=== PATIENT | female | born 1935 | race Asian ===

== ENCOUNTER 2016-10-12 06:33 | Day surgery (SDC) | payer OTHER ==
--- NOTE | 2016-10-11 10:37 | PREOPHP ---
DATE OF ADMISSION: 10/12/2016 HISTORY OF PRESENT ILLNESS: This 81-year-old patient is admitted for elective cataract surgery of t he left eye. The patient has complained of progressive deterioration of vision in both eyes for the past 4 months' time. The patient's systemic history is positive for hypertension and angina. CURRENT MEDICATIONS INCLUDE: 1. Isosorbide. 2. Losartan. 3. Felodipine. 4. Fenofibrate. 5. Nitroglycerin. ALLERGIES: THERE ARE NO KNOWN ALLERGIES. PHYSICAL EXAMINATION: The visual acuity with best correction is 20/60 in the right eye and 20/70 in the left eye. Slit lamp examination reveals nuclear sclerotic cataracts with vacuolar changes in b oth eyes. Applanation tonometry is 17 mmHg. Examination of the retina is within normal limits. DIAGNOSIS: Cataract, left eye. PLAN: Cataract extraction with lens implant, left eye. The risks and alternatives to the surgery h ave been discussed with the patient and patient has opted to proceed with surgery. Dictated By: WEN TOMLINSON/NILSA Conf#: [id number] DID#: [id number]
[2016-10-12] VITALS (8 sets, daily range): BP systolic 140–164; BP diastolic 68–79; PULSE 18–79; RESP 16–27; Ht 147.3 cm; Wt 65.0 kg
[~2016-10-12] VITALS: Ht 147.3 cm; Wt 65.0 kg
[2016-10-12] MEDS ORDERED: HYDR100T7 PO (07:12)
[2016-10-12] MEDS ORDERED: ATOR40TA68 PO (07:13)
[2016-10-12] MEDS ORDERED: CLOP75TA27 PO (07:13)
[2016-10-12] MEDS ORDERED: [UNRECOGNIZED DRUG - CODE] PO (07:15)
[2016-10-12] MEDS ORDERED: ISOS60TA PO (07:16)
[2016-10-12] MEDS ORDERED: LOSA100T7 PO (07:16)
[2016-10-12] MEDS ORDERED: FELO10TA PO (07:17)
[2016-10-12] MEDS ORDERED: NIT4 SL (07:17)
[2016-10-12] MEDS ORDERED: CYCLOPENTOLATE/PHENYLEPH 2 ML OPH OPER SCH (08:00)
[2016-10-12] MEDS ORDERED: DICLOFENAC 0.1% 2.5 ML OPH OPER SCH (08:00)
[2016-10-12] MEDS ORDERED: TROPICAMIDE 1% 2 ML OPH OPER SCH (08:00)
[2016-10-12] MEDS ORDERED: CIPROFLOXACIN 0.3% 2.5 ML OPH OPER SCH (08:00)
[2016-10-12] MEDS ORDERED: PROPOFOL 20 ML ONE (09:20)
[2016-10-12] MEDS ORDERED: LIDOCAINE 2% (SDV) 5 ML INJ ONE (09:21)
[2016-10-12] MEDS ORDERED: OXYCODONE/ACETAMINOPHEN (5/325) TAB PO PRN ×2 (09:30)
[2016-10-12] MEDS ORDERED: hydrALAzine 20 MG INJ IV PRN (09:30)
[2016-10-12] MEDS ORDERED: MIDAZOLAM 1 MG/ML 2 ML INJ IV PRN (09:30)
[2016-10-12] MEDS ORDERED: MEPERIDINE 25 MG INJ IV PRN (09:30)
[2016-10-12] MEDS ORDERED: morphine (1 MG/ML) 10ML SYRINGE IV PRN ×3 (09:30)
[2016-10-12] MEDS ORDERED: LABETALOL HCL 20MG INJ IV PRN (09:30)
[2016-10-12] MEDS ORDERED: DIPHENHYDRAMINE 50 MG INJ IV PRN (09:30)
[2016-10-12] MEDS ORDERED: EPHEDrine SULFATE 50 MG/5 ML SYG IV PRN (09:30)
[2016-10-12] MEDS ORDERED: ONDANSETRON 4 MG INJ IV PRN (09:30)
[2016-10-12] MEDS ORDERED: HYDROmorphONE (0.2 MG/ML) 10ML SYG IV PRN ×3 (09:30)
[2016-10-12] MEDS ORDERED: ATROPINE 1 MG/10 ML SYRINGE IV PRN (09:30)
[2016-10-12] MEDS ORDERED: FENTAnyl 50 MCG/ML VIAL IV PRN ×2 (09:30)
[2016-10-12] MEDS ORDERED: LIDOCAINE 4% (MPF) 5 ML INJ ONE (09:44)
[2016-10-12] MEDS ORDERED: HYALURONATE/CHONDROITIN 1ML OPH INJ ONE (09:44)
[2016-10-12] MEDS ORDERED: CARBACHOL 0.01% 1.5 ML OPH INJ ONE (09:44)
[2016-10-12] MEDS ORDERED: DEXAMETHASONE 4 MG/ML 1 ML INJ ONE (09:44)
--- NOTE | 2016-10-12 11:36 | OPR ---
DATE OF OPERATION: 10/12/2016 PREOPERATIVE DIAGNOSIS: Cataract, left eye. POSTOPERATIVE DIAGNOSIS: Cataract, left eye. OPERATION PERFORMED: Cataract extraction with lens implant, left eye. SURGEON: Wen Gilliland MD ANESTHESIA: Dr. Gill OPERATION: Phacoemulsification with posterior chamber intraocular lens implant, left eye. PROCEDURE: The patient was brought to the operating room and placed on the table with an IV in plac e and the patient attached to an property assessment monitor. Oxygen was given via face mask. After some intravenous sedation was administered, local anesthesia was given using Xylocaine 2% with epinephrine, mixed with Marcaine 0.5%. This was given in a lid block and retrobulbar injection. The patient was then prepped and draped in the usual sterile manner. A wire lid speculum was inserted between the lids of the left eye. A Superblade was used to enter th e anterior chamber at the corneoscleral limbus at the 10:30 o'clock position. A separate incision wa s made using a 3.0-mm keratome which entered the corneoscleral junction at the 12 o'clock position. Through this 3-mm opening, an irrigating cystitome was introduced into the anterior chamber. The aguilar mber was filled with Viscoat and an anterior capsulotomy was performed. Balanced salt solution was t hen used for hydrodissection of the lens. A phacoemulsification handpiece was then brought into the field and introduced into the anterior chamber. The lens nucleus was emulsified using a deep groove and cracking the nucleus into quadrants. Following this, each quadrant was aspirated and emulsified at the pupillary margin. After this was completed, the irrigation/aspiration handpiece was brought to the field, introduced i nto the posterior chamber, and the lens cortical material was removed. When this was completed, tami tional Viscoat was injected into the anterior and posterior chambers. The 3-mm opening had its internal lips enlarged, and then the posterior chamber intraocular lens albaro suring 21.5 diopters ([employer], Model LI61A0) was then injected into the posterio r chamber using the lens injector system. After the leading haptic was introduced into the capsular bag and the lens optic was present in the center of the eye, the injector was removed and the traili ng haptic was grasped with non-toothed forceps and introduced into the capsular fold superiorly. A S inskey hook was then used to rotate the intraocular lens so that the lips were oriented in the horiz ontal meridian. One 10-0 nylon suture was placed across the wound. Prior to tying, the irrigation/aspiration handpiece was reintroduced into the anterior chamber to re move the Viscoat. Miochol was instilled to constrict the pupil, and then the 10-0 nylon suture was t ied. The ends were cut short and then the knot was buried. Then, 0.5 mL of dexamethasone and 0.5 mL of Ancef were injected into the sub-Tenon space in the infe rior fornix. Ciloxan drops were then placed on the surface of the eye. The speculum was removed and a patch was applied. The patient then left the operating room in satisfactory condition. Dictated By: WEN TOMLINSON/NILSA Conf#: [id number] DID#: [id number]
[2016-10-12] MEDS ORDERED: CEFAZOLIN 1 GM INJ INJ ONE (12:02)
== END 2016-10-12 12:05 | disposition home or self-care (01) ==
LOC: SDS 06:33
PROVIDERS: ATTEND Ophthalmology
DX: H25.12 Age-related nuclear cataract, left eye (principal); I10 Essential (primary) hypertension; I25.10 Atherosclerotic heart disease of native coronary artery without angina pectoris; E78.5 Hyperlipidemia, unspecified; E66.9 Obesity, unspecified; Z68.29 Body mass index [BMI] 29.0-29.9, adult
CPT/HCPCS: 66984; J0690; J1100; V2632; Z7512; Z7610

== ENCOUNTER 2017-07-05 06:39 | Day surgery (SDC) | END 2017-07-05 11:19 | disposition home or self-care (01) | DX: H25.11 Age-related nuclear cataract, right eye (principal) | CPT/HCPCS: 66984; J0360; J0690; J1100; J2001; J2405; J3010; V2632; Z7512; Z7610 ==